=== PATIENT | male | born 1970 | race Native Hawaiian/Other Pacific Islander ===

== ENCOUNTER 2022-10-13 12:50 | Day surgery (SDC) | payer BC ==
[2022-10-13] VITALS (12 sets, daily range): BP systolic 125–159; BP diastolic 91–108
[~2022-10-13] VITALS: Ht 180.3 cm; Wt 89.4 kg
[~2022-10-13 12:50] MED LIST: GLIM4 PO; TRULICITY1.5 MG/0.1 SC
--- NOTE | 2022-10-13 14:41 | NUR ---
Ambulatory in Day Surgery. Surgical site prepped with 2% Chlorhexidine cloth wipe. History, Chart, Medications and Allergies reviewed before start of procedure. Lungs clear T/O to Auscultation. Patient confirms NPO status and agrees with scheduled surgery. Patient States Post-Procedure ride home has been arranged.
[2022-10-13 14:51] LABS: Bun/Creatinine Ratio 20.5 (12.0-20.0); Calcium, Blood 9.4 mg/dL (8.5-10.1); Creatinine, Blood 0.73 mg/dL (0.60-1.20); Potassium, Blood 4.2 mmol/L (3.5-5.5)
--- NOTE | 2022-10-13 17:10 | NUR ---
LATE ENTRY DR FLANAGAN AWARE OF HTN AND SHE STATES NO NEW ORDERS
--- NOTE | 2022-10-13 17:19 | NUR ---
PT STATES HE HAS BEEN TOLD IN THE PAST THAT HE HAS HIGH BLOOD PRESSURE
== END 2022-10-13 17:22 | disposition home or self-care (01) ==
LOC: ORSCMMR 12:50
PROVIDERS: Orthopaedic Surgery; Student in an Organized Health Care Education/Training Program
PROC: 0PSP04Z Reposition Right Metacarpal with Internal Fixation Device, Open Approach (ICD-10-PCS; principal; 2022-10-13 14:00)
DX: S62.316A Displaced fracture of base of fifth metacarpal bone, right hand, initial encounter for closed fracture (principal); W22.8XXA Striking against or struck by other objects, initial encounter; E10.8 Type 1 diabetes mellitus with unspecified complications; Z79.4 Long term (current) use of insulin; Z79.899 Other long term (current) drug therapy
CPT/HCPCS: 80048; 82947; 93005; 93010; A9270; J0690; J1100; J1885; J2405; J2704; J3010; J7120

== ENCOUNTER → 2024-07-03 | Outpatient (CLI) | payer BC ==
[2024-07-06 21:21] LABS: CALPROTECTIN,FECAL 17 ug/g (<=49)
== END ==
LOC: LAB 11:10 → LAB SHORT 11:10
PROVIDERS: Family Medicine
DX: R63.4 Abnormal weight loss (principal); R53.83 Other fatigue
CPT/HCPCS: 83993